=== PATIENT | female | born 1995 | race African-American/Black ===

== ENCOUNTER 2017-05-06 09:12 | Emergency (ER) | payer OTHER ==
[~2017-05-06] VITALS: Ht 160 cm; Wt 84.8 kg
[2017-05-06] MEDS ORDERED: SODIUM CHLORIDE 0.9% 1,000 ML IV ONE ×3 (10:10→12:34)
[2017-05-06] MEDS ORDERED: PROMETHAZINE HCL 25 MG/ML 1ML IV ONE ×2 (10:15→12:45)
[2017-05-06 12:37] VITALS: BP 127/67
[2017-05-06 13:12] LABS: Urine Bacteria NONE SEEN /hpf (None Seen); Urine Blood Negative /uL (Negative); Urine Mucus FEW (None Seen); Urine Specific Gravity 1.015 (1.001-1.035); Urine WBC 2 /hpf (0 - 5)
[2017-05-06 13:50] LABS: Albumin 2.8 g/dL (3.4-5.0); BUN/Creatinine Ratio 8.9; Bilirubin, Total 0.3 mg/dL (0.2-1.0); Calcium 7.6 mg/dL (8.5-10.1); Potassium 3.1 mmol/L (3.5-5.1); Total Protein 6.7 g/dL (6.4-8.2)
== END 2017-05-06 13:33 | disposition home or self-care (01) ==
LOC: ER 09:12
DX: O21.9 Vomiting of pregnancy, unspecified (principal); O26.892 Other specified pregnancy related conditions, second trimester; R10.30 Lower abdominal pain, unspecified; R11.0 Nausea; Z3A.17 17 weeks gestation of pregnancy
CPT/HCPCS: 36415; 76805; 80053; 81001; 82150; 96361; 96374; 96376; 99285; J2550; J7030

== ENCOUNTER 2017-06-18 13:05 | Observation (INO) | payer BC, OTHER ==
[~2017-06-18] VITALS: Ht 30.5 cm; Wt 0.0 kg
[2017-06-18] MEDS ORDERED: LACTATED RINGER'S 1,000 ML IV ONE (13:48)
[2017-06-18] MEDS ORDERED: PREN-153 OR (13:50)
[2017-06-18] MEDS ORDERED: PROMETHAZINE HCL 25 MG/ML 1ML IV ONE (14:00)
== END 2017-06-18 15:15 | disposition home or self-care (01) | DRG 781 ==
LOC: LDRP 13:05
PROVIDERS: ADMIT Obstetrics & Gynecology; ATTEND Obstetrics & Gynecology
DX: O21.2 Late vomiting of pregnancy (principal); E86.0 Dehydration; O26.892 Other specified pregnancy related conditions, second trimester; R10.9 Unspecified abdominal pain; Z3A.24 24 weeks gestation of pregnancy
CPT/HCPCS: 59025; 81002; 96361; 96374; G0378; J2550; 96366